=== PATIENT | female | born 1950 ===

== ENCOUNTER 2024-10-26 13:10 | Outpatient (AMB) | payer MEDICARE, SELFPAY ==
[2024-10-26 14:03] VITALS: BP 140/62; PULSE 72; TEMP 36.7; O2SAT 98; BMI 25.3
--- NOTE | 2024-10-26 14:03 | AM.OFFWIN_ITS ---
Intake Vital Signs 3 10/26/24 14:03 Height 5 ft 5 in Weight 152 lb BMI 25.3 BP 140/62 H Blood Pressure Location Rt brachial Position Sitting Pulse 72 Pulse Source Pulse Oximeter Temp 98.0 F Temp Source Oral Pulse Oximetry (%) 98 Oxygen Delivery Method Room Air Intake Visit Reasons: [employer] Throbbing pain in LT foot Intake Note: pt presents with left foot pain and swelling on inner foot Allergies No Known Allergies Allergy (Verified 10/26/24 14:06) Do you need a note to return to daycare/school/sports/work: No HPI HPI Comments 2 History of Present Illness0 Details 74 y/o Female patient who presents to [facility] walk in clinic with c/o left Foot Pain and swelling since Saturday. [place] - pain started the same night keeping her up all night. She took Advil with great relief. She has been applying ice with good symptom relief. Pain with walking and standing. Denies injury or trauma. [facility] Medical History (Updated 10/26/24 @ 14:22 by Mis Chau NP) Foot pain, left Review of Systems Const All systems reviewed & are unremarkable except as noted in HPI and below Physical Exam Vital Signs: Last Vital Signs Temp 98.0 F 10/26/24 14:03 Pulse 72 10/26/24 14:03 BP 140/62 H 10/26/24 14:03 Pulse Ox 98 10/26/24 14:03 Oxygen Delivery Method Room Air 10/26/24 14:03 BMI result Body Mass Index 25.3 Const General: no acute distress Nutritional Appearance: well nourished Orientation/consciousness: patient oriented x3 Neuro General: patient oriented x3, gait normal and moves all extremities Extrem Ankle/foot/toe images: 2 1. TTP, mild swelling, normal skin color and temperature. No signs of infection. Normal ROM. Psych Speech and movement: Normal speech and movement present Assessment & Plan Assessment & Plan (1) Foot pain, left: Code(s): M79.672 - Pain in left foot Plan: NSAIDs for pain relief. Ice/Hot for pain relief. Rest joint. Medications: New 2 ibuprofen 800 mg PO Q8H 20 tabs 0RF M79.672 - Pain in left foot Coding Level of Care Code New Pt Level 4 (59049) Diagnoses Foot pain, left M79.672 Time Spent (min) 20
== END 2024-10-26 14:27 | disposition home or self-care (01) ==
PROVIDERS: Visit Provider Nurse Practitioner Family
DX: M79.672 Pain in left foot (principal)

== ENCOUNTER → 2024-10-26 13:10 | Outpatient (BNVA) | payer MEDICARE, SELFPAY | DX: M79.672 Pain in left foot (principal) | CPT/HCPCS: 99202 ==